=== PATIENT | male | born 1965 | race Caucasian/White ===

== ENCOUNTER → 2016-06-13 | Outpatient (CLI) | payer OTHER ==
[~2016-06-13] VITALS: Ht 180.3 cm; Wt 81.8 kg
[~2016-06-13] MED LIST: ALDACTONE100 MG PO; ALDACTONE50 MG PO; Aldactone PO; B COMPLETE1 EACH PO; CLOBETASOL PROP60 G1 TP; Chronulac,Cephulac,E PO; Cipro PO; ENULOSE10 GM/15 M PO; FEOSOL325 MG PO; FOLIC ACID1 MG PO; FUROSEMIDE20 MG PO; FUROSEMIDE40 MG PO; FUROSEMIDE80 MG PO; Feosol PO; Folvite PO; INDERAL LA60 MG PO; Inderal LA PO; LASIX40 MG PO; Lasix PO; Levothroid,Synthroid PO; MAG-OXIDE400 MG PO; Mag-Ox PO; POTASSIUM-9999 MG PO; PROTONIX40 MG PO; PriLOSEC PO; Protonix PO; SYNTHROID100 MCG PO; THERAGRAN1 TABLET PO; THERATRUM COMP1 EAC1 PO; THIAMINE HCL100 MG PO; TYLENOL REGULA325 MG PO; Theragran PO; Thiamine,Vitamin B1 PO; VITAMIN D5000 UNIT PO; XIFAXAN550 MG PO; ZINC50 M1 PO; ZOFRAN8 MG PO
== END | disposition home or self-care (01) ==
LOC: RAD 08:38 → EDSTATUS 09:00 → RAD 09:00
PROC: 0W993ZZ Drainage of Right Pleural Cavity, Percutaneous Approach (ICD-10-PCS; principal; 2016-06-13)
DX: J90 Pleural effusion, not elsewhere classified (principal)

== ENCOUNTER → 2016-06-25 | Outpatient (CLI) | payer OTHER | END | disposition home or self-care (01) | LOC: RAD 10:53 → EDSTATUS 11:00 → RAD 11:00 | PROC: 0B9N3ZZ Drainage of Right Pleura, Percutaneous Approach (ICD-10-PCS; principal; 2016-06-25) | DX: J90 Pleural effusion, not elsewhere classified (principal) ==

== ENCOUNTER → 2016-07-02 | Outpatient (CLI) | payer OTHER | END | disposition home or self-care (01) | LOC: RAD 08:50 → EDSTATUS 09:00 → RAD 09:00 | PROC: 0W993ZZ Drainage of Right Pleural Cavity, Percutaneous Approach (ICD-10-PCS; principal; 2016-07-02) | DX: J90 Pleural effusion, not elsewhere classified (principal) ==

== ENCOUNTER → 2016-07-15 | Outpatient (CLI) | payer OTHER | END | disposition home or self-care (01) | LOC: RAD 10:46 → EDSTATUS 11:00 → RAD 11:00 | PROC: 0W993ZZ Drainage of Right Pleural Cavity, Percutaneous Approach (ICD-10-PCS; principal; 2016-07-15) | DX: J90 Pleural effusion, not elsewhere classified (principal) ==

== ENCOUNTER → 2016-07-24 | Outpatient (CLI) | payer OTHER | END | disposition home or self-care (01) | LOC: RAD 08:40 → EDSTATUS 09:00 → RAD 09:00 | PROC: 0W993ZZ Drainage of Right Pleural Cavity, Percutaneous Approach (ICD-10-PCS; principal; 2016-07-24) | DX: J90 Pleural effusion, not elsewhere classified (principal) ==

== ENCOUNTER → 2016-07-31 | Outpatient (CLI) | payer OTHER | END | disposition home or self-care (01) | LOC: RAD 13:37 → EDSTATUS 14:00 → RAD 14:00 | PROC: 0W993ZZ Drainage of Right Pleural Cavity, Percutaneous Approach (ICD-10-PCS; principal; 2016-07-31) | DX: J90 Pleural effusion, not elsewhere classified (principal) ==

== ENCOUNTER → 2016-08-06 | Outpatient (CLI) | payer OTHER ==
[~2016-08-06] MED LIST changes: +CLEAR EYES ITCH15 ML BOTH EYES; +LIDOCARE1 EACH TP
== END | disposition home or self-care (01) ==
LOC: RAD 08:35 → EDSTATUS 09:00 → RAD 09:00
PROC: 0W993ZZ Drainage of Right Pleural Cavity, Percutaneous Approach (ICD-10-PCS; principal; 2016-08-06)
DX: J90 Pleural effusion, not elsewhere classified (principal)

== ENCOUNTER → 2016-08-14 | Outpatient (CLI) | payer OTHER ==
[~2016-08-14] MED LIST changes: -CLEAR EYES ITCH15 ML BOTH EYES; -LIDOCARE1 EACH TP
== END | disposition home or self-care (01) ==
LOC: RAD 13:35 → EDSTATUS 14:00 → RAD 14:00
PROC: 0W993ZZ Drainage of Right Pleural Cavity, Percutaneous Approach (ICD-10-PCS; principal; 2016-08-14)
DX: J90 Pleural effusion, not elsewhere classified (principal)

== ENCOUNTER → 2016-08-21 | Outpatient (CLI) | payer OTHER | END | disposition home or self-care (01) | LOC: RAD 09:00 → EDSTATUS 09:00 → RAD 13:00 | PROC: 0W993ZZ Drainage of Right Pleural Cavity, Percutaneous Approach (ICD-10-PCS; principal; 2016-08-21) | DX: J90 Pleural effusion, not elsewhere classified (principal) ==

== ENCOUNTER → 2016-08-28 | Outpatient (CLI) | payer OTHER ==
[~2016-08-28] MED LIST changes: +CLEAR EYES ITCH15 ML BOTH EYES; +LIDOCARE1 EACH TP
== END | disposition home or self-care (01) ==
LOC: RAD 08:41 → EDSTATUS 09:00
PROC: 0W993ZZ Drainage of Right Pleural Cavity, Percutaneous Approach (ICD-10-PCS; principal; 2016-08-28)
DX: J90 Pleural effusion, not elsewhere classified (principal)

== ENCOUNTER 2016-08-29 13:24 | Inpatient (IN) | payer OTHER ==
[~2016-08-29] VITALS: Ht 180.3 cm; Wt 80.5 kg
[2016-08-29] VITALS (11 sets, daily range): BP systolic 85–103; BP diastolic 40–60
[~2016-08-29 13:24] MED LIST changes: -CLEAR EYES ITCH15 ML BOTH EYES; -LIDOCARE1 EACH TP
[2016-08-29 14:01] LABS: CHLORIDE 101 mEq/L (99-109); SODIUM 133 mEq/L (136-147)
[2016-08-29 14:03] LABS: GLUCOSE 129 mg/dL (70-99)
[2016-08-29 14:04] LABS: ANION GAP 12 MEQ/L (2-14)
[2016-08-29 14:05] LABS: HEMATOCRIT 16.3 % (38.0-50.0); MCH 24.9 PG (29.0-34.0); MCHC 28.8 G/DL (30.0-36.0); MCV 86.2 FL (86-99); PLATELET COUNT 115 K/uL (156-360); RBC DIS.WIDTH-CV 16.7 % (11.8-14.6); RBC DIS.WIDTH-SD 53.1 % (39-53); RED BLOOD COUNT 1.89 M/uL (4.00-5.50); WHITE BLOOD COUNT 5.2 K/uL (4.1-10.2)
[2016-08-29 14:07] LABS: GFR ESTIMATE (CALCULATED) > 59 mL/min/
[2016-08-29 14:08] LABS: UREA NITROGEN (BUN) 17 mg/dL (9-23)
[2016-08-29] MEDS ORDERED: LIDOCARE1 EACH TP (15:01)
[2016-08-29] MEDS ORDERED: CLEAR EYES ITCH15 ML BOTH EYES (15:02)
[2016-08-29 20:15] LABS: INTER. NORMALIZED RATIO 1.5; PROTHROMBIN TIME 15.6 (9.2-11.2)
[2016-08-30] VITALS (16 sets, daily range): BP systolic 88–115; BP diastolic 50–70
[2016-08-30 10:07] LABS: ALKALINE PHOSPHATASE 101 IU/L (3-129); ANION GAP 6 MEQ/L (2-14); CHLORIDE 103 MEQ/L (99-109); GFR ESTIMATE (CALCULATED) > 59 mL/min/; GLUCOSE 132 mg/dL (70-99); SAMPLE HEMOLYSIS CHECK 0; SAMPLE ICTERIC CHECK 1; SAMPLE LIPEMIA CHECK 0; SODIUM 133 MEQ/L (136-147); TOTAL BILIRUBIN 4.3 MG/DL (0.0-1.0); UREA NITROGEN (BUN) 13 mg/dL (9-23)
[2016-08-30 10:09] LABS: HEMATOCRIT 23.1 % (38.0-50.0); MCH 27.1 PG (29.0-34.0); MCHC 31.2 G/DL (30.0-36.0); MCV 86.8 FL (86-99); RBC DIS.WIDTH-CV 15.5 % (11.8-14.6); RBC DIS.WIDTH-SD 49.2 % (39-53); RED BLOOD COUNT 2.66 M/uL (4.00-5.50)
[2016-08-30 12:18] LABS: PLATELET COUNT 78 K/uL (156-360)
[2016-08-30 17:53] LABS: HEMATOCRIT 25.9 % (38.0-50.0); MCV 84.6 FL (86-99)
== END 2016-08-30 20:04 | disposition home or self-care (01) | DRG 379 ==
LOC: EME 13:24 → EDOF 18:49 → 5EAST 18:49
PROVIDERS: Internal Medicine
PROC: 30233N1 Transfusion of Nonautologous Red Blood Cells into Peripheral Vein, Percutaneous Approach (ICD-10-PCS; principal; 2016-08-29)
DX: K92.2 Gastrointestinal hemorrhage, unspecified (principal); D64.9 Anemia, unspecified; K21.9 Gastro-esophageal reflux disease without esophagitis; I10 Essential (primary) hypertension; Z87.891 Personal history of nicotine dependence; K70.30 Alcoholic cirrhosis of liver without ascites; R19.7 Diarrhea, unspecified; E03.9 Hypothyroidism, unspecified; F10.10 Alcohol abuse, uncomplicated
CPT/HCPCS: 36415; 80048; 80053; 85014; 85018; 85025; 85027; 85610; 85730; 86850; 86900; 86901; 86920; 99281; 99284; C9113; J0696; J2354; J7050; P9016

== ENCOUNTER → 2016-09-04 | Outpatient (CLI) | payer OTHER ==
[~2016-09-04] MED LIST changes: +CLEAR EYES ITCH15 ML BOTH EYES; +LIDOCARE1 EACH TP
== END | disposition home or self-care (01) ==
LOC: RAD 08:55 → EDSTATUS 09:00 → RAD 09:00
PROC: 0W993ZZ Drainage of Right Pleural Cavity, Percutaneous Approach (ICD-10-PCS; principal; 2016-09-04)
DX: J90 Pleural effusion, not elsewhere classified (principal)

== ENCOUNTER → 2016-09-11 | Outpatient (CLI) | payer OTHER | END | disposition home or self-care (01) | LOC: RAD 08:50 → EDSTATUS 09:00 | PROC: 0W993ZZ Drainage of Right Pleural Cavity, Percutaneous Approach (ICD-10-PCS; principal; 2016-09-11) | DX: J90 Pleural effusion, not elsewhere classified (principal) ==

== ENCOUNTER → 2016-09-18 | Outpatient (CLI) | payer OTHER | END | disposition home or self-care (01) | LOC: RAD 08:31 → EDSTATUS 09:00 | PROC: 0W993ZZ Drainage of Right Pleural Cavity, Percutaneous Approach (ICD-10-PCS; principal; 2016-09-18) | DX: J90 Pleural effusion, not elsewhere classified (principal) ==

== ENCOUNTER → 2016-09-25 | Outpatient (CLI) | payer OTHER | END | disposition home or self-care (01) | LOC: RAD 08:51 → EDSTATUS 09:00 | PROC: 0W993ZZ Drainage of Right Pleural Cavity, Percutaneous Approach (ICD-10-PCS; principal; 2016-09-25) | DX: J90 Pleural effusion, not elsewhere classified (principal) ==

== ENCOUNTER → 2016-10-02 | Outpatient (CLI) | payer OTHER | END | disposition home or self-care (01) | LOC: RAD 08:59 → EDSTATUS 09:00 | PROC: 0W993ZZ Drainage of Right Pleural Cavity, Percutaneous Approach (ICD-10-PCS; principal; 2016-10-02) | DX: J90 Pleural effusion, not elsewhere classified (principal) ==

== ENCOUNTER → 2016-10-09 | Outpatient (CLI) | payer OTHER | END | disposition home or self-care (01) | LOC: RAD 09:00 → EDSTATUS 09:00 → RAD 09:04 | PROC: 0W993ZZ Drainage of Right Pleural Cavity, Percutaneous Approach (ICD-10-PCS; principal; 2016-10-09) | DX: J90 Pleural effusion, not elsewhere classified (principal) ==

== ENCOUNTER → 2016-10-16 | Outpatient (CLI) | payer OTHER | END | disposition home or self-care (01) | LOC: RAD 08:35 → EDSTATUS 09:00 | PROC: 0W993ZZ Drainage of Right Pleural Cavity, Percutaneous Approach (ICD-10-PCS; principal; 2016-10-16) | DX: J90 Pleural effusion, not elsewhere classified (principal) ==

== ENCOUNTER → 2016-10-23 | Outpatient (CLI) | payer OTHER | END | disposition home or self-care (01) | LOC: RAD 08:43 → EDSTATUS 09:00 → RAD 09:00 | PROC: 0W993ZZ Drainage of Right Pleural Cavity, Percutaneous Approach (ICD-10-PCS; principal; 2016-10-23) | DX: J90 Pleural effusion, not elsewhere classified (principal) ==

== ENCOUNTER → 2016-10-30 | Outpatient (CLI) | payer OTHER | END | disposition home or self-care (01) | LOC: RAD 08:34 → EDSTATUS 09:00 → RAD 09:00 | PROC: 0W993ZZ Drainage of Right Pleural Cavity, Percutaneous Approach (ICD-10-PCS; principal; 2016-10-30) | DX: J90 Pleural effusion, not elsewhere classified (principal) ==

== ENCOUNTER → 2016-11-06 | Outpatient (CLI) | payer OTHER | END | disposition home or self-care (01) | LOC: RAD 08:39 → EDSTATUS 09:00 | PROC: BB4BZZZ Ultrasonography of Pleura (ICD-10-PCS; principal; 2016-11-06) | DX: J90 Pleural effusion, not elsewhere classified (principal); Z53.09 Procedure and treatment not carried out because of other contraindication | CPT/HCPCS: 76604 ==

== ENCOUNTER → 2016-11-20 | Outpatient (CLI) | payer OTHER | END | disposition home or self-care (01) | LOC: RAD 08:50 → EDSTATUS 09:00 | PROC: BB4BZZZ Ultrasonography of Pleura (ICD-10-PCS; principal; 2016-11-20) | DX: J90 Pleural effusion, not elsewhere classified (principal); Z53.09 Procedure and treatment not carried out because of other contraindication | CPT/HCPCS: 76604 ==

== ENCOUNTER → 2016-11-27 | Outpatient (CLI) | payer OTHER | END | disposition home or self-care (01) | LOC: RAD 08:33 → EDSTATUS 09:00 → RAD 09:00 | PROC: BB4BZZZ Ultrasonography of Pleura (ICD-10-PCS; principal; 2016-11-27) | DX: J90 Pleural effusion, not elsewhere classified (principal); Z53.09 Procedure and treatment not carried out because of other contraindication | CPT/HCPCS: 76604 ==

== ENCOUNTER → 2016-12-04 | Outpatient (CLI) | payer OTHER | END | disposition home or self-care (01) | LOC: RAD 08:39 → EDSTATUS 09:00 | PROC: BB4BZZZ Ultrasonography of Pleura (ICD-10-PCS; principal; 2016-12-04) | DX: J90 Pleural effusion, not elsewhere classified (principal); Z53.09 Procedure and treatment not carried out because of other contraindication | CPT/HCPCS: 76604 ==

== ENCOUNTER → 2016-12-18 | Outpatient (CLI) | payer OTHER | END | disposition home or self-care (01) | LOC: RAD 08:44 → EDSTATUS 09:00 → RAD 09:00 | PROC: 0W993ZZ Drainage of Right Pleural Cavity, Percutaneous Approach (ICD-10-PCS; principal; 2016-12-18) | DX: J90 Pleural effusion, not elsewhere classified (principal) | CPT/HCPCS: 76942 ==

== ENCOUNTER → 2016-12-25 | Outpatient (CLI) | payer OTHER | END | disposition home or self-care (01) | LOC: RAD 08:33 → EDSTATUS 09:00 | PROC: 0W993ZZ Drainage of Right Pleural Cavity, Percutaneous Approach (ICD-10-PCS; principal; 2016-12-25) | DX: J90 Pleural effusion, not elsewhere classified (principal) | CPT/HCPCS: 76942 ==

== ENCOUNTER → 2017-01-01 | Outpatient (CLI) | payer OTHER | END | disposition home or self-care (01) | LOC: RAD 08:47 → EDSTATUS 09:00 | PROC: BB4BZZZ Ultrasonography of Pleura (ICD-10-PCS; principal; 2017-01-01) | DX: Z53.09 Procedure and treatment not carried out because of other contraindication (principal) | CPT/HCPCS: 76604 ==

== ENCOUNTER → 2017-01-13 | Outpatient (CLI) | payer OTHER | END | disposition home or self-care (01) | LOC: RAD 08:57 → EDSTATUS 09:00 → RAD 01-15 09:00 | PROC: BB4BZZZ Ultrasonography of Pleura (ICD-10-PCS; principal; 2017-01-13) | DX: Z53.09 Procedure and treatment not carried out because of other contraindication (principal) | CPT/HCPCS: 76604 ==

== ENCOUNTER → 2017-01-22 | Outpatient (CLI) | payer OTHER | END | disposition home or self-care (01) | LOC: EDSTATUS 09:00 → RAD 09:00 | PROC: BB4BZZZ Ultrasonography of Pleura (ICD-10-PCS; principal; 2017-01-22) | DX: Z53.09 Procedure and treatment not carried out because of other contraindication (principal) | CPT/HCPCS: 76604 ==

== ENCOUNTER → 2017-02-05 | Outpatient (CLI) | payer OTHER | END | disposition home or self-care (01) | LOC: RAD 08:31 → EDSTATUS 09:00 → RAD 09:00 | PROC: BB4BZZZ Ultrasonography of Pleura (ICD-10-PCS; principal; 2017-02-05) | DX: Z53.09 Procedure and treatment not carried out because of other contraindication (principal) | CPT/HCPCS: 76604 ==

== ENCOUNTER → 2017-02-19 | Outpatient (CLI) | payer OTHER | END | disposition home or self-care (01) | LOC: RAD 09:00 → EDSTATUS 09:00 → RAD 09:23 | PROC: BB4BZZZ Ultrasonography of Pleura (ICD-10-PCS; principal; 2017-02-19) | DX: Z53.09 Procedure and treatment not carried out because of other contraindication (principal) | CPT/HCPCS: 76604 ==

== ENCOUNTER → 2017-02-25 | Outpatient (CLI) | payer OTHER | END | disposition home or self-care (01) | LOC: RAD 08:51 → EDSTATUS 09:00 | PROC: BB4BZZZ Ultrasonography of Pleura (ICD-10-PCS; principal; 2017-02-25) | DX: Z53.09 Procedure and treatment not carried out because of other contraindication (principal) | CPT/HCPCS: 76604 ==

== ENCOUNTER → 2017-03-05 | Outpatient (CLI) | payer OTHER | END | disposition home or self-care (01) | LOC: RAD 08:46 → EDSTATUS 09:00 → RAD 09:00 | PROC: BB4BZZZ Ultrasonography of Pleura (ICD-10-PCS; principal; 2017-03-05) | DX: Z53.09 Procedure and treatment not carried out because of other contraindication (principal) | CPT/HCPCS: 76604 ==

== ENCOUNTER → 2017-04-02 | Outpatient (CLI) | payer OTHER ==
[~2017-04-02] MED LIST changes: +ASPIR 8181 M1 PO; +FLAGYL500 MG PO; +METOPROLOL SUCC25 MG PO; +PRAVASTATIN SOD80 MG PO; +PREVALITE PACKET4 GM PO
== END | disposition home or self-care (01) ==
LOC: EDSTATUS 01-08 09:00 → RAD 01-08 09:00
PROC: BB4BZZZ Ultrasonography of Pleura (ICD-10-PCS; principal; 2017-04-02)
DX: J90 Pleural effusion, not elsewhere classified (principal); Z53.09 Procedure and treatment not carried out because of other contraindication
CPT/HCPCS: 76604

== ENCOUNTER → 2017-04-08 | Outpatient (CLI) | payer OTHER ==
[~2017-04-08] VITALS: Ht 177.8 cm; Wt 81.0 kg
[~2017-04-08] MED LIST changes: +B-1100 MG PO; +FLEXERIL10 MG PO; +K-DUR20 MEQ PO; +LEVOTHYROXINE100 MCG PO; +MULTIPLE VITAM1 EAC1 PO; +PREVACID30 MG PO; +PROPRANOLOL HCL40 MG PO; +VITAMIN B122500 MCG PO; +VITAMIN D35000 UNIT PO; +XIFAXAN200 MG PO
== END | disposition home or self-care (01) ==
LOC: EDSTATUS 03-18 09:00 → RAD 03-18 09:00
PROC: 0W993ZZ Drainage of Right Pleural Cavity, Percutaneous Approach (ICD-10-PCS; principal; 2017-04-08)
DX: J90 Pleural effusion, not elsewhere classified (principal)
CPT/HCPCS: 76942

== ENCOUNTER → 2017-04-16 | Outpatient (CLI) | payer OTHER | END | disposition home or self-care (01) | LOC: RAD 08:54 | PROC: 0W993ZZ Drainage of Right Pleural Cavity, Percutaneous Approach (ICD-10-PCS; principal; 2017-04-16) | DX: J90 Pleural effusion, not elsewhere classified (principal) | CPT/HCPCS: 76942 ==

== ENCOUNTER → 2017-04-21 | Outpatient (CLI) | payer OTHER ==
[~2017-04-21] MED LIST changes: +AMPICILLIN TRI500 MG PO
== END | disposition home or self-care (01) ==
LOC: RAD 10:28 → EDSTATUS 11:00 → RAD 11:00
PROC: 0W993ZZ Drainage of Right Pleural Cavity, Percutaneous Approach (ICD-10-PCS; principal; 2017-04-21)
DX: J90 Pleural effusion, not elsewhere classified (principal)
CPT/HCPCS: 76942

== ENCOUNTER → 2017-04-27 | Outpatient (CLI) | payer OTHER ==
[2017-04-27 12:45] LABS: TYPE OF FLUID PLEURAL
[2017-04-27 13:03] LABS: BODY FLUID RBC'S 159000 /MM^3 (0-100); BODY FLUID WBC'S 1869 /MM^3 (0-500)
[2017-04-27 14:17] LABS: BODY FLUID EOSINOPHILS 0 % (0-25); MONONUCLEAR WBC'S 26 %; POLYNUCLEAR WBC'S 74 % (0-25)
== END | disposition home or self-care (01) ==
LOC: RAD 11:00
PROVIDERS: Internal Medicine
PROC: 0W993ZZ Drainage of Right Pleural Cavity, Percutaneous Approach (ICD-10-PCS; principal; 2017-04-27)
DX: J90 Pleural effusion, not elsewhere classified (principal)
CPT/HCPCS: 76942; 87070; 87075; 87077; 87186; 87205; 89051

== ENCOUNTER → 2017-05-04 | Outpatient (CLI) | payer OTHER | END | disposition home or self-care (01) | LOC: RAD 11:00 → EDSTATUS 11:00 → RAD 11:05 | PROC: 0W993ZZ Drainage of Right Pleural Cavity, Percutaneous Approach (ICD-10-PCS; principal; 2017-05-04) | DX: J90 Pleural effusion, not elsewhere classified (principal) | CPT/HCPCS: 76942 ==

== ENCOUNTER → 2017-05-14 | Outpatient (CLI) | payer OTHER | END | disposition home or self-care (01) | LOC: RAD 08:30 | PROC: 0W993ZZ Drainage of Right Pleural Cavity, Percutaneous Approach (ICD-10-PCS; principal; 2017-05-14) | DX: J90 Pleural effusion, not elsewhere classified (principal) | CPT/HCPCS: 76942 ==

== ENCOUNTER → 2017-05-20 | Outpatient (CLI) | payer OTHER | END | disposition home or self-care (01) | LOC: RAD 10:58 → EDSTATUS 11:00 → RAD 11:00 | PROC: 0W993ZZ Drainage of Right Pleural Cavity, Percutaneous Approach (ICD-10-PCS; principal; 2017-05-20) | DX: J90 Pleural effusion, not elsewhere classified (principal) | CPT/HCPCS: 76942 ==

== ENCOUNTER → 2017-05-28 | Outpatient (CLI) | payer OTHER ==
[~2017-05-28] MED LIST changes: +MICRO-K10 ME2 PO
== END | disposition home or self-care (01) ==
LOC: RAD 08:56 → EDSTATUS 09:00 → RAD 09:00
PROC: 0W993ZZ Drainage of Right Pleural Cavity, Percutaneous Approach (ICD-10-PCS; principal; 2017-05-28)
DX: J90 Pleural effusion, not elsewhere classified (principal)
CPT/HCPCS: 76942

== ENCOUNTER → 2017-06-04 | Outpatient (CLI) | payer OTHER | END | disposition home or self-care (01) | LOC: RAD 09:06 | PROC: 0W993ZZ Drainage of Right Pleural Cavity, Percutaneous Approach (ICD-10-PCS; principal; 2017-06-04) | DX: J90 Pleural effusion, not elsewhere classified (principal) | CPT/HCPCS: 76942 ==

== ENCOUNTER → 2017-06-11 | Outpatient (CLI) | payer OTHER | END | disposition home or self-care (01) | LOC: RAD 08:46 → EDSTATUS 09:00 | PROC: 0W993ZZ Drainage of Right Pleural Cavity, Percutaneous Approach (ICD-10-PCS; principal; 2017-06-11) | DX: J90 Pleural effusion, not elsewhere classified (principal) | CPT/HCPCS: 76942 ==

== ENCOUNTER → 2017-06-18 | Outpatient (CLI) | payer OTHER | END | disposition home or self-care (01) | LOC: RAD 10:15 → EDSTATUS 11:00 | PROC: 0W9B3ZZ Drainage of Left Pleural Cavity, Percutaneous Approach (ICD-10-PCS; principal; 2017-06-18) | DX: J90 Pleural effusion, not elsewhere classified (principal) | CPT/HCPCS: 76942 ==

== ENCOUNTER → 2017-07-02 | Outpatient (CLI) | payer OTHER | END | disposition home or self-care (01) | LOC: RAD 10:47 → EDSTATUS 11:00 | PROC: 0W993ZZ Drainage of Right Pleural Cavity, Percutaneous Approach (ICD-10-PCS; principal; 2017-07-02) | DX: J90 Pleural effusion, not elsewhere classified (principal) | CPT/HCPCS: 76942 ==

== ENCOUNTER → 2017-07-09 | Outpatient (CLI) | payer OTHER | END | disposition home or self-care (01) | LOC: RAD 10:46 → EDSTATUS 11:00 → RAD 11:00 | PROC: 0W993ZZ Drainage of Right Pleural Cavity, Percutaneous Approach (ICD-10-PCS; principal; 2017-07-09) | DX: J90 Pleural effusion, not elsewhere classified (principal) | CPT/HCPCS: 76942 ==

== ENCOUNTER → 2017-07-16 | Outpatient (CLI) | payer OTHER | END | disposition home or self-care (01) | LOC: RAD 10:47 → EDSTATUS 11:00 → RAD 11:00 | PROC: BB4BZZZ Ultrasonography of Pleura (ICD-10-PCS; principal; 2017-07-16) | DX: J90 Pleural effusion, not elsewhere classified (principal); Z53.09 Procedure and treatment not carried out because of other contraindication | CPT/HCPCS: 76604 ==

== ENCOUNTER → 2017-07-30 | Outpatient (CLI) | payer OTHER | END | disposition home or self-care (01) | LOC: RAD 10:52 → EDSTATUS 11:00 | PROC: BB4BZZZ Ultrasonography of Pleura (ICD-10-PCS; principal; 2017-07-30) | DX: J90 Pleural effusion, not elsewhere classified (principal); Z53.09 Procedure and treatment not carried out because of other contraindication | CPT/HCPCS: 76604 ==

== ENCOUNTER → 2017-08-06 | Outpatient (CLI) | payer OTHER | END | disposition home or self-care (01) | LOC: RAD 06-25 11:00 → EDSTATUS 06-25 11:00 → RAD 11:00 | PROC: 0WJG3ZZ Inspection of Peritoneal Cavity, Percutaneous Approach (ICD-10-PCS; principal; 2017-08-06) | DX: J90 Pleural effusion, not elsewhere classified (principal); Z53.09 Procedure and treatment not carried out because of other contraindication | CPT/HCPCS: 76604 ==

== ENCOUNTER → 2017-08-13 | Outpatient (CLI) | payer OTHER | END | disposition home or self-care (01) | LOC: EDSTATUS 11:00 → RAD 11:00 | PROC: BB4BZZZ Ultrasonography of Pleura (ICD-10-PCS; principal; 2017-08-13) | DX: R18.8 Other ascites (principal); Z53.09 Procedure and treatment not carried out because of other contraindication | CPT/HCPCS: 76604 ==

== ENCOUNTER 2017-08-27 10:41 | Emergency (ER) | payer OTHER ==
[2017-08-27] VITALS (13 sets, daily range): BP systolic 92–115; BP diastolic 47–63
[~2017-08-27] VITALS: Ht 180.3 cm; Wt 85.0 kg
[2017-08-27 11:24] LABS: INTER. NORMALIZED RATIO 2.8
[2017-08-27 11:26] LABS: HEMATOCRIT 17.3 % (38.0-50.0); MCH 38.7 PG (29.0-34.0); MCHC 33.5 G/DL (30.0-36.0); MCV 115.3 FL (86-99); NRBC (%) 0.2 /100 WBC (0-0); PLATELET COUNT 99 K/uL (156-360); PTT 46.1 SEC (25-37); RBC DIS.WIDTH-CV 19.4 % (11.8-14.6); RBC DIS.WIDTH-SD 76.9 % (39-53); WHITE BLOOD COUNT 8.7 K/uL (4.1-10.2)
[2017-08-27 11:28] LABS: ALBUMIN 2.3 g/dL (3.2-4.8); CHLORIDE 90 mEq/L (99-109); POTASSIUM 3.8 mEq/L (3.7-5.4); SODIUM 127 mEq/L (136-147)
[2017-08-27 11:29] LABS: HEMOGLOBIN 5.8 G/DL (12.5-16.6)
[2017-08-27 11:30] LABS: GLUCOSE 144 mg/dL (70-99)
[2017-08-27 11:31] LABS: TOTAL PROTEIN 5.6 g/dL (6.4-8.3)
[2017-08-27 11:32] LABS: TOTAL BILIRUBIN 19.1 mg/dL (0.0-1.0)
[2017-08-27 11:34] LABS: ALKALINE PHOSPHATASE 92 IU/L (3-129); CREATININE 1.3 mg/dL (0.6-1.3); GFR ESTIMATE (CALCULATED) > 59 mL/min/ (58.99-99999)
[2017-08-27 11:35] LABS: UREA NITROGEN (BUN) 39 mg/dL (9-23)
[2017-08-27 11:36] LABS: AST (GOT) 53 IU/L (2-34); DIRECT BILIRUBIN 10.4 mg/dL (0.0-0.3)
[2017-08-27 11:37] LABS: ALT (GPT) 20 IU/L (3-49)
[2017-08-27 11:52] LABS: TYPE OF FLUID PERITONEAL
[2017-08-27 12:07] LABS: ABS NEUTROPHIL COUNT 7.9; ANISOCYTOSIS 2+; BAND NEUTROPHILS 3.5 % (0-8.0); EOSINOPHIL ABS CT 0; LYMPHOCYTES 1.7 % (15.0-45.0); MACROCYTES 2+; NUCLEATED RBC'S 0.9; PLAT.SUFFICIENCY ADEQUATE; POIKILOCYTOSIS 1+; SEG.NEUTROPHILS 87.8 % (46.0-76.0)
[2017-08-27 13:08] LABS: APPEARANCE CLEAR ((CLEAR)); BILIRUBIN MODERATE; BLOOD SMALL; COLOR AMBER ((YELLOW)); GLUCOSE (STRIP) NEGATIVE; KETONES NEGATIVE; LEUKOCYTES NEGATIVE; NITRITE NEGATIVE; PROTEIN (STRIP) 30; SPECIFIC GRAVITY 1.017 (1.000-1.030)
[2017-08-27 13:09] LABS: BODY FLUID EOSINOPHILS 0 % (0-25); BODY FLUID RBC'S 2000 /MM^3 (0-100); BODY FLUID WBC'S 22430 /MM^3 (0-500); MONONUCLEAR WBC'S 13 %; POLYNUCLEAR WBC'S 87 % (0-25)
[2017-08-27 13:21] LABS: APPEARANCE YELLOW/CLOUDY
[2017-08-27 13:25] LABS: EPITHELIAL CELLS 2+ /HPF; MUCUS NONE SEEN /LPF; RED BLOOD CELLS RARE /HPF (0-5); WHITE BLOOD CELLS NONE SEEN /HPF (0-5)
[2017-08-27 13:26] LABS: BACTERIA 1+ /HPF; UCUL ADDED? NO
[2017-08-27 13:40] LABS: ICTOTEST POSITIVE
== END 2017-08-27 20:37 | disposition short-term general hospital (02) ==
LOC: EME 10:41
PROVIDERS: Emergency Medicine
PROC: 30233N1 Transfusion of Nonautologous Red Blood Cells into Peripheral Vein, Percutaneous Approach (ICD-10-PCS; principal; 2017-08-27)
PROC: 30233K1 Transfusion of Nonautologous Frozen Plasma into Peripheral Vein, Percutaneous Approach (ICD-10-PCS; principal; 2017-08-27)
PROC: 0W9G3ZZ Drainage of Peritoneal Cavity, Percutaneous Approach (ICD-10-PCS; principal; 2017-08-27)
DX: K65.2 Spontaneous bacterial peritonitis (principal); B96.89 Other specified bacterial agents as the cause of diseases classified elsewhere; D64.9 Anemia, unspecified; R65.20 Severe sepsis without septic shock; E80.6 Other disorders of bilirubin metabolism; K74.60 Unspecified cirrhosis of liver; Z76.82 Awaiting organ transplant status; J90 Pleural effusion, not elsewhere classified; F32.9 Major depressive disorder, single episode, unspecified; K21.9 Gastro-esophageal reflux disease without esophagitis; Z87.891 Personal history of nicotine dependence
CPT/HCPCS: 49083; 71046; 76604; 80048; 80076; 81003; 83605; 85025; 85610; 85730; 86850; 86900; 86901; 86920; 87040; 87070; 87075; 87077; 87186; 87205; 87502; 89051; 99281; 99285; J0696; J7030; P9016; P9017

== ENCOUNTER → 2017-09-17 | Outpatient (CLI) | payer OTHER ==
[~2017-09-17] MED LIST changes: +BACTRIM,SEPT1 TABLET PO
== END | disposition home or self-care (01) ==
LOC: RAD 10:46 → EDSTATUS 11:00
PROC: 0W993ZZ Drainage of Right Pleural Cavity, Percutaneous Approach (ICD-10-PCS; principal; 2017-09-17)
DX: J90 Pleural effusion, not elsewhere classified (principal)
CPT/HCPCS: 76942

== ENCOUNTER → 2017-09-24 | Outpatient (CLI) | payer OTHER | END | disposition home or self-care (01) | LOC: RAD 10:53 → EDSTATUS 11:00 | PROC: 0W993ZZ Drainage of Right Pleural Cavity, Percutaneous Approach (ICD-10-PCS; principal; 2017-09-24) | DX: J90 Pleural effusion, not elsewhere classified (principal) | CPT/HCPCS: 76942 ==

== ENCOUNTER → 2017-10-01 | Outpatient (CLI) | payer OTHER | END | disposition home or self-care (01) | LOC: RAD 11:00 → EDSTATUS 11:00 → RAD 11:04 | PROC: 0W993ZZ Drainage of Right Pleural Cavity, Percutaneous Approach (ICD-10-PCS; principal; 2017-10-01) | DX: J90 Pleural effusion, not elsewhere classified (principal) | CPT/HCPCS: 76942 ==

== ENCOUNTER → 2017-10-08 | Outpatient (CLI) | payer OTHER | END | disposition home or self-care (01) | LOC: RAD 07-23 11:00 → EDSTATUS 07-23 11:00 → RAD 09-10 11:00 | PROC: 0W993ZZ Drainage of Right Pleural Cavity, Percutaneous Approach (ICD-10-PCS; principal; 2017-10-08) | DX: J90 Pleural effusion, not elsewhere classified (principal) | CPT/HCPCS: 76942 ==

== ENCOUNTER → 2017-10-15 | Outpatient (CLI) | payer OTHER | END | disposition home or self-care (01) | LOC: RAD 08-20 11:00 → EDSTATUS 08-20 11:00 → RAD 11:00 | PROC: 0W993ZZ Drainage of Right Pleural Cavity, Percutaneous Approach (ICD-10-PCS; principal; 2017-10-15) | DX: J90 Pleural effusion, not elsewhere classified (principal) | CPT/HCPCS: 76942 ==

== ENCOUNTER → 2017-10-22 | Outpatient (CLI) | payer OTHER | END | disposition home or self-care (01) | LOC: EDSTATUS 08-27 11:00 → RAD 08-27 11:00 | PROC: 0W993ZZ Drainage of Right Pleural Cavity, Percutaneous Approach (ICD-10-PCS; principal; 2017-10-22) | DX: J90 Pleural effusion, not elsewhere classified (principal) | CPT/HCPCS: 76942 ==

== ENCOUNTER → 2017-10-29 | Outpatient (CLI) | payer OTHER ==
[~2017-10-29] MED LIST changes: +BUMEX2 MG PO; +POTASSIUM CHLO10 ME4 PO
== END | disposition home or self-care (01) ==
LOC: RAD 10:54 → EDSTATUS 11:00 → RAD 11:00
DX: J90 Pleural effusion, not elsewhere classified (principal)
CPT/HCPCS: 76604

== ENCOUNTER → 2017-11-05 | Outpatient (CLI) | payer OTHER | END | disposition home or self-care (01) | LOC: RAD 10:54 → EDSTATUS 11:00 | PROC: 0W993ZZ Drainage of Right Pleural Cavity, Percutaneous Approach (ICD-10-PCS; principal; 2017-11-05) | DX: J90 Pleural effusion, not elsewhere classified (principal) | CPT/HCPCS: 76942 ==

== ENCOUNTER → 2017-11-12 | Outpatient (CLI) | payer OTHER | END | disposition home or self-care (01) | LOC: RAD 10:59 → EDSTATUS 11:00 | PROC: BB4BZZZ Ultrasonography of Pleura (ICD-10-PCS; principal; 2017-11-12) | DX: J90 Pleural effusion, not elsewhere classified (principal); Z53.09 Procedure and treatment not carried out because of other contraindication | CPT/HCPCS: 76604 ==

== ENCOUNTER → 2017-11-19 | Outpatient (CLI) | payer OTHER | END | disposition home or self-care (01) | LOC: RAD 10:47 → EDSTATUS 11:00 | DX: R18.8 Other ascites (principal); J90 Pleural effusion, not elsewhere classified; Z53.09 Procedure and treatment not carried out because of other contraindication | CPT/HCPCS: 49083; 76604 ==

== ENCOUNTER → 2017-11-26 | Outpatient (CLI) | payer OTHER | END | disposition home or self-care (01) | LOC: EDSTATUS 11:00 → RAD 11:00 | DX: R18.8 Other ascites (principal); J90 Pleural effusion, not elsewhere classified; Z53.09 Procedure and treatment not carried out because of other contraindication | CPT/HCPCS: 49083; 76604 ==

== ENCOUNTER → 2017-12-02 | Outpatient (CLI) | payer OTHER | END | disposition home or self-care (01) | LOC: RAD 13:13 | PROC: 0W9G3ZZ Drainage of Peritoneal Cavity, Percutaneous Approach (ICD-10-PCS; principal; 2017-12-02) | DX: R18.8 Other ascites (principal) | CPT/HCPCS: 49083 ==

== ENCOUNTER → 2017-12-10 | Outpatient (CLI) | payer OTHER | END | disposition home or self-care (01) | LOC: RAD 09:56 | PROC: 0W9G3ZZ Drainage of Peritoneal Cavity, Percutaneous Approach (ICD-10-PCS; principal; 2017-12-10) | DX: R18.8 Other ascites (principal) | CPT/HCPCS: 49083 ==

== ENCOUNTER → 2017-12-16 | Outpatient (CLI) | payer OTHER ==
[~2017-12-16] MED LIST changes: +BUMETANIDE2 MG PO; +INDERAL10 MG PO; +METOLAZONE5 MG PO; +POTASSIUM CHLO20 ME1 PO
== END | disposition home or self-care (01) ==
LOC: RAD 13:13
PROC: 0W9G3ZZ Drainage of Peritoneal Cavity, Percutaneous Approach (ICD-10-PCS; principal; 2017-12-16)
DX: R18.8 Other ascites (principal)
CPT/HCPCS: 49083

== ENCOUNTER 2017-12-18 18:14 | Inpatient (IN) | payer OTHER ==
[~2017-12-18] VITALS: Ht 180.3 cm; Wt 78.8 kg
[~2017-12-18 18:14] MED LIST changes: -BUMETANIDE2 MG PO; -INDERAL10 MG PO; -METOLAZONE5 MG PO; -POTASSIUM CHLO20 ME1 PO
[2017-12-18 19:01] LABS: HEMATOCRIT 20.4 % (38.0-50.0); HEMOGLOBIN 7.1 G/DL (12.5-16.6); MCHC 34.8 G/DL (30.0-36.0); PLATELET COUNT 75 K/uL (156-360); RBC DIS.WIDTH-CV 16.9 % (11.8-14.6); RBC DIS.WIDTH-SD 63.9 % (39-53); RED BLOOD COUNT 1.92 M/uL (4.00-5.50)
[2017-12-18 19:07] LABS: MCV 106.3 FL (86-99)
[2017-12-18 19:22] LABS: CHLORIDE 97 mEq/L (99-109); POTASSIUM 3.3 mEq/L (3.7-5.4); SODIUM 134 mEq/L (136-147)
[2017-12-18 19:23] LABS: GLUCOSE 128 mg/dL (70-99)
[2017-12-18 19:27] LABS: CREATININE 0.7 mg/dL (0.6-1.3); GFR ESTIMATE (CALCULATED) > 59 mL/min/ (58.99-99999)
[2017-12-18 19:28] LABS: UREA NITROGEN (BUN) 14 mg/dL (9-23)
[2017-12-18 19:43] LABS: INTER. NORMALIZED RATIO 1.9
[2017-12-18 19:46] LABS: PTT 35.7 SEC (25-37)
[2017-12-18 19:50] LABS: ALBUMIN 2.3 g/dL (3.2-4.8)
[2017-12-18 19:53] LABS: TOTAL PROTEIN 5.2 g/dL (6.4-8.3)
[2017-12-18 19:55] LABS: TOTAL BILIRUBIN 13.3 mg/dL (0.0-1.0)
[2017-12-18 19:56] LABS: ALKALINE PHOSPHATASE 209 IU/L (3-129)
[2017-12-18 19:58] LABS: AST (GOT) 55 IU/L (2-34); DIRECT BILIRUBIN 5.6 mg/dL (0.0-0.3)
[2017-12-18 19:59] LABS: ALT (GPT) 22 IU/L (3-49); LIPASE 57 U/L (1.0-51.0)
[2017-12-18 20:00] LABS: TROP-I INTERPRETATION NEGATIVE; TROPONIN-I 0.01 ng/mL (0.0-0.30)
[2017-12-18] MEDS ORDERED: METOLAZONE5 MG PO (23:15)
[2017-12-18] MEDS ORDERED: POTASSIUM CHLO20 ME1 PO (23:17)
[2017-12-18] MEDS ORDERED: BUMETANIDE2 MG PO (23:18)
[2017-12-18] MEDS ORDERED: INDERAL10 MG PO (23:19)
[2017-12-19] VITALS (8 sets, daily range): BP systolic 111–132; BP diastolic 57–75
[2017-12-19 03:24] LABS: HEMATOCRIT 18.5 % (38.0-50.0); HEMOGLOBIN 6.4 G/DL (12.5-16.6); MCHC 34.6 G/DL (30.0-36.0); MCV 106.9 FL (86-99); PLATELET COUNT 66 K/uL (156-360); RBC DIS.WIDTH-CV 16.9 % (11.8-14.6); RBC DIS.WIDTH-SD 64.2 % (39-53); RED BLOOD COUNT 1.73 M/uL (4.00-5.50); WHITE BLOOD COUNT 3.5 K/uL (4.1-10.2)
== END 2017-12-19 07:16 | disposition short-term general hospital (02) | DRG 433 ==
LOC: EME 18:14 → 4EAST 12-19 → EDOF 12-19 → ENRESERV 12-19 00:04 → 4EAST 12-19 01:35
PROVIDERS: Emergency Medicine; Student in an Organized Health Care Education/Training Program
PROC: 30233N1 Transfusion of Nonautologous Red Blood Cells into Peripheral Vein, Percutaneous Approach (ICD-10-PCS; principal; 2017-12-19)
DX: K70.40 Alcoholic hepatic failure without coma (principal); K70.31 Alcoholic cirrhosis of liver with ascites; Z76.82 Awaiting organ transplant status; K92.2 Gastrointestinal hemorrhage, unspecified; E87.1 Hypo-osmolality and hyponatremia; E87.6 Hypokalemia; I10 Essential (primary) hypertension; L40.9 Psoriasis, unspecified; D51.0 Vitamin B12 deficiency anemia due to intrinsic factor deficiency; F10.21 Alcohol dependence, in remission; Z87.891 Personal history of nicotine dependence; Z80.0 Family history of malignant neoplasm of digestive organs
CPT/HCPCS: 36415; 49083; 71045; 80048; 80053; 80076; 81003; 82140; 82272; 83605; 83690; 84484; 85025; 85027; 85610; 85730; 86850; 86900; 86901; 86920; 93005; 99281; 99285; C9113; J0696; J1940; J3411; J7030; J7050; P9016

== ENCOUNTER 2017-12-30 16:32 | Inpatient (IN) | payer OTHER ==
[~2017-12-30] VITALS: Ht 180.3 cm; Wt 90.6 kg
[2017-12-30] VITALS (8 sets, daily range): BP systolic 80–102; BP diastolic 40–59
[~2017-12-30 16:32] MED LIST changes: -CONSTULOSE10 GM/15 M PO; -PANTOPRAZOLE SO40 MG PO
[2017-12-30 17:45] LABS: CARBON DIOXIDE (BICARBONATE) 21.9 MEQ/L (20-31)
[2017-12-30 17:50] LABS: ALBUMIN 2.9 g/dL (3.2-4.8)
[2017-12-30 17:51] LABS: CHLORIDE 103 mEq/L (99-109); POTASSIUM 4.9 mEq/L (3.7-5.4); SODIUM 133 mEq/L (136-147)
[2017-12-30 17:52] LABS: BASOPHIL (%) 0.1 % (0-1); EOSINOPHIL (%) 0.6 % (0-5); EOSINOPHIL COUNT 0.1 K/uL (0-0.3); HEMATOCRIT 13.4 % (38.0-50.0); IMMATURE GRANULOCYTE (%) 1.2 % (0.0-0.7); LYMPHOCYTE (%) 3.5 % (15-42); LYMPHOCYTE COUNT 0.7 K/uL (1.0-2.8); MCH 36.1 PG (29.0-34.0); MCHC 35.8 G/DL (30.0-36.0); MONOCYTE (%) 8.1 % (3-12); MONOCYTE COUNT 1.6 K/uL (0-0.8); NEUTROPHIL (%) 86.5 % (45-76); NEUTROPHIL COUNT 17.2 K/uL (1.8-6.4); RBC DIS.WIDTH-CV 21.6 % (11.8-14.6); RBC DIS.WIDTH-SD 76.4 % (39-53); WHITE BLOOD COUNT 19.8 K/uL (4.1-10.2)
[2017-12-30 17:53] LABS: GLUCOSE 84 mg/dL (70-99); HEMOGLOBIN 4.8 G/DL (12.5-16.6); MCV 100.8 FL (86-99); PLATELET COUNT 128 K/uL (156-360); RED BLOOD COUNT 1.33 M/uL (4.00-5.50); TOTAL PROTEIN 5.9 g/dL (6.4-8.3)
[2017-12-30 17:54] LABS: APPEARANCE CLEAR ((CLEAR)); BILIRUBIN NEGATIVE; BLOOD NEGATIVE; COLOR YELLOW ((YELLOW)); GLUCOSE (STRIP) NEGATIVE; KETONES NEGATIVE; LEUKOCYTES NEGATIVE; NITRITE NEGATIVE; PROTEIN (STRIP) NEGATIVE; SPECIFIC GRAVITY 1.006 (1.000-1.030); UCUL ADDED? NO; UROBILINOGEN 0.2 MG/DL (0.2-1.0)
[2017-12-30 17:55] LABS: TOTAL BILIRUBIN 11.2 mg/dL (0.0-1.0)
[2017-12-30 17:56] LABS: ALKALINE PHOSPHATASE 200 IU/L (3-129)
[2017-12-30 17:57] LABS: CREATININE 1.2 mg/dL (0.6-1.3); GFR ESTIMATE (CALCULATED) > 59 mL/min/ (58.99-99999); INTER. NORMALIZED RATIO 1.7
[2017-12-30 17:58] LABS: AST (GOT) 76 IU/L (2-34); UREA NITROGEN (BUN) 29 mg/dL (9-23)
[2017-12-30 17:59] LABS: ALT (GPT) 34 IU/L (3-49)
[2017-12-30 18:00] LABS: LIPASE 60 U/L (1.0-51.0); PTT 35.5 SEC (25-37)
[2017-12-30] MEDS ORDERED: XIFAXAN550 MG PO (19:50)
[2017-12-30] MEDS ORDERED: LEVOTHYROXINE100 MCG PO (19:51)
[2017-12-30] MEDS ORDERED: PANTOPRAZOLE SO40 MG PO (19:51)
[2017-12-30 19:53] LABS: BASOPHIL (%) 0.2 % (0-1); EOSINOPHIL (%) 0.9 % (0-5); EOSINOPHIL COUNT 0.1 K/uL (0-0.3); HEMATOCRIT 20.3 % (38.0-50.0); IMMATURE GRANULOCYTE (%) 1.2 % (0.0-0.7); LYMPHOCYTE COUNT 0.6 K/uL (1.0-2.8); MCH 35.8 PG (29.0-34.0); MCV 99.5 FL (86-99); MONOCYTE (%) 10.7 % (3-12); MONOCYTE COUNT 1.4 K/uL (0-0.8); NEUTROPHIL COUNT 10.6 K/uL (1.8-6.4); RBC DIS.WIDTH-CV 21.5 % (11.8-14.6); RBC DIS.WIDTH-SD 77.1 % (39-53); WHITE BLOOD COUNT 12.9 K/uL (4.1-10.2)
[2017-12-30] MEDS ORDERED: CONSTULOSE10 GM/15 M PO (19:53)
[2017-12-30 19:54] LABS: HEMOGLOBIN 7.3 G/DL (12.5-16.6); RED BLOOD COUNT 2.04 M/uL (4.00-5.50)
[2017-12-30 20:35] LABS: HEMATOLOGY COMMENT 1 SN; PLAT.SUFFICIENCY DECREASED
[2017-12-30 20:36] LABS: PLATELET COUNT 72 K/uL (156-360)
[2017-12-31] VITALS (43 sets, daily range): BP systolic 70–110; BP diastolic 36–67
[2017-12-31 02:38] LABS: HEMATOCRIT 23.9 % (38.0-50.0); HEMOGLOBIN 8.6 G/DL (12.5-16.6); MCV 96.4 FL (86-99)
[2017-12-31 05:29] LABS: HEMOGLOBIN 8.2 G/DL (12.5-16.6); MCH 33.5 PG (29.0-34.0); MCHC 34.2 G/DL (30.0-36.0); PLATELET COUNT 75 K/uL (156-360); RBC DIS.WIDTH-CV 22.3 % (11.8-14.6); RBC DIS.WIDTH-SD 76.2 % (39-53)
[2017-12-31 05:36] LABS: PTT 38.2 SEC (25-37)
[2017-12-31 05:41] LABS: RED BLOOD COUNT 2.45 M/uL (4.00-5.50)
[2017-12-31 06:51] LABS: ALBUMIN 2.6 G/DL (3.2-4.8); ALKALINE PHOSPHATASE 87 IU/L (3-129); ALT (GPT) 22 IU/L (3-49); AST (GOT) 41 IU/L (2-34); CHLORIDE 107 MEQ/L (99-109); CREATININE 1.5 MG/DL (0.6-1.3); GFR ESTIMATE (CALCULATED) 52 mL/min/ (58.99-99999); POTASSIUM 4.5 MEQ/L (3.7-5.4); SODIUM 135 MEQ/L (136-147); TOTAL BILIRUBIN 11.1 MG/DL (0.0-1.0); TOTAL PROTEIN 4.9 G/DL (6.4-8.3); UREA NITROGEN (BUN) 32 mg/dL (9-23)
[2017-12-31 06:54] LABS: GLUCOSE 109 mg/dL (70-99)
[2017-12-31 15:38] LABS: HEMATOCRIT 22.4 % (38.0-50.0); HEMOGLOBIN 7.6 G/DL (12.5-16.6)
[2017-12-31 18:46] LABS: BASOPHIL (%) 0.4 % (0-1); EOSINOPHIL COUNT 0.1 K/uL (0-0.3); HEMATOCRIT 21.7 % (38.0-50.0); HEMOGLOBIN 7.6 G/DL (12.5-16.6); IMMATURE GRANULOCYTE (%) 0.5 % (0.0-0.7); LYMPHOCYTE (%) 7.3 % (15-42); LYMPHOCYTE COUNT 0.6 K/uL (1.0-2.8); MCH 34.2 PG (29.0-34.0); MCV 97.7 FL (86-99); MONOCYTE COUNT 0.6 K/uL (0-0.8); NEUTROPHIL (%) 83.8 % (45-76); NEUTROPHIL COUNT 6.6 K/uL (1.8-6.4); PLATELET COUNT 56 K/uL (156-360); RBC DIS.WIDTH-CV 22.5 % (11.8-14.6); RBC DIS.WIDTH-SD 76.5 % (39-53); RED BLOOD COUNT 2.22 M/uL (4.00-5.50); WHITE BLOOD COUNT 7.9 K/uL (4.1-10.2)
[2017-12-31 18:56] LABS: ALBUMIN 2.7 g/dL (3.2-4.8); CHLORIDE 111 mEq/L (99-109); POTASSIUM 4.2 mEq/L (3.7-5.4); SODIUM 135 mEq/L (136-147)
[2017-12-31 18:58] LABS: GLUCOSE 155 mg/dL (70-99); PTT 27.9 SEC (25-37)
[2017-12-31 19:00] LABS: TOTAL BILIRUBIN 9.2 mg/dL (0.0-1.0)
[2017-12-31 19:02] LABS: CREATININE 1.2 mg/dL (0.6-1.3); GFR ESTIMATE (CALCULATED) > 59 mL/min/ (58.99-99999)
[2017-12-31 19:03] LABS: UREA NITROGEN (BUN) 30 mg/dL (9-23)
[2017-12-31 19:05] LABS: ALKALINE PHOSPHATASE 92 IU/L (3-129); ALT (GPT) 24 IU/L (3-49); AST (GOT) 41 IU/L (2-34); TOTAL PROTEIN 4.9 g/dL (6.4-8.3)
[2018-01-01] VITALS (17 sets, daily range): BP systolic 84–126; BP diastolic 48–96
[2018-01-01 07:52] LABS: INTER. NORMALIZED RATIO 2.1
[2018-01-01 07:52] LABS: BASOPHIL (%) 0.6 % (0-1); EOSINOPHIL (%) 2.1 % (0-5); EOSINOPHIL COUNT 0.1 K/uL (0-0.3); HEMATOCRIT 19.9 % (38.0-50.0); HEMOGLOBIN 6.7 G/DL (12.5-16.6); IMMATURE GRANULOCYTE (%) 0.9 % (0.0-0.7); LYMPHOCYTE (%) 7.5 % (15-42); LYMPHOCYTE COUNT 0.4 K/uL (1.0-2.8); MCH 33.3 PG (29.0-34.0); MCHC 33.7 G/DL (30.0-36.0); MONOCYTE (%) 10.7 % (3-12); MONOCYTE COUNT 0.6 K/uL (0-0.8); NEUTROPHIL (%) 78.2 % (45-76); NEUTROPHIL COUNT 4.2 K/uL (1.8-6.4); PLATELET COUNT 52 K/uL (156-360); RBC DIS.WIDTH-CV 22.2 % (11.8-14.6); RED BLOOD COUNT 2.01 M/uL (4.00-5.50); WHITE BLOOD COUNT 5.3 K/uL (4.1-10.2)
[2018-01-01 07:55] LABS: PTT 38.4 SEC (25-37)
[2018-01-01 08:08] LABS: ALBUMIN 2.2 G/DL (3.2-4.8); ALKALINE PHOSPHATASE 84 IU/L (3-129); ALT (GPT) 18 IU/L (3-49); AST (GOT) 29 IU/L (2-34); CHLORIDE 110 MEQ/L (99-109); CREATININE 1.1 MG/DL (0.6-1.3); GFR ESTIMATE (CALCULATED) > 59 mL/min/ (58.99-99999); GLUCOSE 150 mg/dL (70-99); POTASSIUM 4.4 MEQ/L (3.7-5.4); SODIUM 135 MEQ/L (136-147); UREA NITROGEN (BUN) 22 mg/dL (9-23)
[2018-01-01 08:09] LABS: TOTAL BILIRUBIN 6.8 MG/DL (0.0-1.0); TOTAL PROTEIN 4.1 G/DL (6.4-8.3)
[2018-01-01 08:46] LABS: HIGH-SENS C-REACTIVE PROTEIN 3.52 MG/DL (0.02-0.20)
[2018-01-02 06:59] LABS: INTER. NORMALIZED RATIO 1.8
[2018-01-02 07:02] LABS: PTT 37.1 SEC (25-37)
[2018-01-02 07:25] VITALS: BP 109/57
[2018-01-02 07:29] LABS: ALBUMIN 2.6 G/DL (3.2-4.8); ALKALINE PHOSPHATASE 86 IU/L (3-129); ALT (GPT) 21 IU/L (3-49); AST (GOT) 35 IU/L (2-34); CHLORIDE 106 MEQ/L (99-109); CREATININE 1.1 MG/DL (0.6-1.3); GFR ESTIMATE (CALCULATED) > 59 mL/min/ (58.99-99999); GLUCOSE 121 mg/dL (70-99); POTASSIUM 3.6 MEQ/L (3.7-5.4); SODIUM 134 MEQ/L (136-147); TOTAL PROTEIN 4.6 G/DL (6.4-8.3); UREA NITROGEN (BUN) 18 mg/dL (9-23)
[2018-01-02 07:31] LABS: TOTAL BILIRUBIN 8.2 MG/DL (0.0-1.0)
[2018-01-02 10:37] LABS: BASOPHIL (%) 0.8 % (0-1); EOSINOPHIL (%) 5.3 % (0-5); EOSINOPHIL COUNT 0.3 K/uL (0-0.3); HEMOGLOBIN 8.6 G/DL (12.5-16.6); IMMATURE GRANULOCYTE (%) 0.6 % (0.0-0.7); LYMPHOCYTE (%) 11.6 % (15-42); LYMPHOCYTE COUNT 0.6 K/uL (1.0-2.8); MCH 33.7 PG (29.0-34.0); MCHC 34.4 G/DL (30.0-36.0); MONOCYTE (%) 13.7 % (3-12); MONOCYTE COUNT 0.7 K/uL (0-0.8); NEUTROPHIL COUNT 3.2 K/uL (1.8-6.4); RBC DIS.WIDTH-CV 21.3 % (11.8-14.6); RBC DIS.WIDTH-SD 74.4 % (39-53); WHITE BLOOD COUNT 4.7 K/uL (4.1-10.2)
[2018-01-02 11:15] VITALS: BP 117/67
[2018-01-02 11:31] LABS: PLATELET COUNT 75 K/uL (156-360); RED BLOOD COUNT 2.55 M/uL (4.00-5.50)
[2018-01-02 15:50] VITALS: BP 121/63
[2018-01-02 19:11] VITALS: BP 119/69
[2018-01-02 23:16] VITALS: BP 138/67
[2018-01-03 04:15] VITALS: BP 113/56
[2018-01-03 07:20] VITALS: BP 99/55
[2018-01-03 10:34] LABS: BASOPHIL (%) 1.1 % (0-1); BASOPHIL COUNT 0.1 K/uL (0-0.1); EOSINOPHIL (%) 5.6 % (0-5); EOSINOPHIL COUNT 0.3 K/uL (0-0.3); HEMATOCRIT 26.5 % (38.0-50.0); IMMATURE GRANULOCYTE (%) 2.2 % (0.0-0.7); LYMPHOCYTE (%) 11.2 % (15-42); LYMPHOCYTE COUNT 0.5 K/uL (1.0-2.8); MCH 32.8 PG (29.0-34.0); MCV 96.7 FL (86-99); MONOCYTE (%) 16.3 % (3-12); MONOCYTE COUNT 0.8 K/uL (0-0.8); NEUTROPHIL (%) 63.6 % (45-76); PLATELET COUNT 88 K/uL (156-360); RBC DIS.WIDTH-CV 20.4 % (11.8-14.6); RBC DIS.WIDTH-SD 71.9 % (39-53); RED BLOOD COUNT 2.74 M/uL (4.00-5.50); WHITE BLOOD COUNT 4.7 K/uL (4.1-10.2)
[2018-01-03 10:46] LABS: INTER. NORMALIZED RATIO 1.8
[2018-01-03 11:29] LABS: ALBUMIN 2.7 G/DL (3.2-4.8); ALKALINE PHOSPHATASE 108 IU/L (3-129); ALT (GPT) 23 IU/L (3-49); AST (GOT) 37 IU/L (2-34); CHLORIDE 99 MEQ/L (99-109); CREATININE 0.9 MG/DL (0.6-1.3); GFR ESTIMATE (CALCULATED) > 59 mL/min/ (58.99-99999); GLUCOSE 108 mg/dL (70-99); POTASSIUM 3.6 MEQ/L (3.7-5.4); SODIUM 132 MEQ/L (136-147); TOTAL BILIRUBIN 8.1 MG/DL (0.0-1.0); UREA NITROGEN (BUN) 16 mg/dL (9-23)
[2018-01-03] MEDS ORDERED: CONSTULOSE10 GM/15 M PO (16:28)
[2018-01-03 16:50] VITALS: BP 119/59
== END 2018-01-03 20:52 | disposition home or self-care (01) | DRG 871 ==
LOC: EME 16:32 → 4WEST 21:36 → EDOF 21:36 → 5EAST 21:36 → ENRESERV 21:37 → 4WEST 23:16 → ENRESERV 01-01 10:56 → 4WEST 01-01 11:06 → ENRESERV 01-01 16:10 → 5EAST 01-01 19:45
PROVIDERS: Internal Medicine; Nurse Practitioner Family; Surgery
PROC: 30233N1 Transfusion of Nonautologous Red Blood Cells into Peripheral Vein, Percutaneous Approach (ICD-10-PCS; principal; 2017-12-30)
DX: A41.9 Sepsis, unspecified organism (principal); K70.31 Alcoholic cirrhosis of liver with ascites; K65.9 Peritonitis, unspecified; K72.90 Hepatic failure, unspecified without coma; E87.1 Hypo-osmolality and hyponatremia; R65.21 Severe sepsis with septic shock; K76.6 Portal hypertension; D69.59 Other secondary thrombocytopenia; K21.9 Gastro-esophageal reflux disease without esophagitis; D68.4 Acquired coagulation factor deficiency; D53.9 Nutritional anemia, unspecified; E03.9 Hypothyroidism, unspecified; L40.9 Psoriasis, unspecified; K80.20 Calculus of gallbladder without cholecystitis without obstruction; I85.00 Esophageal varices without bleeding; I10 Essential (primary) hypertension; Z76.82 Awaiting organ transplant status; Z87.891 Personal history of nicotine dependence; Z80.0 Family history of malignant neoplasm of digestive organs; Z87.442 Personal history of urinary calculi; Z82.49 Family history of ischemic heart disease and other diseases of the circulatory system
CPT/HCPCS: 49083; 70450; 71045; 74177; 80053; 80202; 81003; 82140; 82803; 83605; 83690; 84145 90; 85014; 85018; 85025; 85025 91; 85027; 85610; 85730; 86141; 86850; 86900; 86901; 86920; 87040; 87641; 93005; 99281; 99285; C1753; C9113; J2543; J3370; J7030; J7050; P9016; P9040; P9047

== ENCOUNTER → 2017-12-30 | Outpatient (CLI) | payer OTHER ==
[~2017-12-30] MED LIST changes: +BUMETANIDE2 MG PO; +CONSTULOSE10 GM/15 M PO; +INDERAL10 MG PO; +METOLAZONE5 MG PO; +PANTOPRAZOLE SO40 MG PO; +POTASSIUM CHLO20 ME1 PO
== END | disposition home or self-care (01) ==
LOC: RAD 13:15
PROC: 0W9G3ZZ Drainage of Peritoneal Cavity, Percutaneous Approach (ICD-10-PCS; principal; 2017-12-30)
DX: R18.8 Other ascites (principal)
CPT/HCPCS: 49083

== ENCOUNTER 2018-02-01 09:32 | Emergency (ER) | payer OTHER ==
[~2018-02-01] VITALS: Ht 180.3 cm; Wt 72.8 kg
[~2018-02-01 09:32] MED LIST changes: +CONSTULOSE10 GM/15 M PO; +PANTOPRAZOLE SO40 MG PO
[2018-02-01 10:06] LABS: ALBUMIN 2.8 g/dL (3.2-4.8)
[2018-02-01 10:07] LABS: CHLORIDE 97 mEq/L (99-109); POTASSIUM 5.1 mEq/L (3.7-5.4); SODIUM 123 mEq/L (136-147)
[2018-02-01 10:09] LABS: GLUCOSE 117 mg/dL (70-99); TOTAL PROTEIN 5.7 g/dL (6.4-8.3)
[2018-02-01 10:11] LABS: TOTAL BILIRUBIN 7.1 mg/dL (0.0-1.0)
[2018-02-01 10:12] LABS: ALKALINE PHOSPHATASE 184 IU/L (3-129); INTER. NORMALIZED RATIO 1.7
[2018-02-01 10:13] LABS: CREATININE 1.1 mg/dL (0.6-1.3); GFR ESTIMATE (CALCULATED) > 59 mL/min/ (58.99-99999)
[2018-02-01 10:14] LABS: AST (GOT) 55 IU/L (2-34); DIRECT BILIRUBIN 3.2 mg/dL (0.0-0.3); UREA NITROGEN (BUN) 28 mg/dL (9-23)
[2018-02-01 10:16] LABS: ALT (GPT) 42 IU/L (3-49)
[2018-02-01 10:19] LABS: TROP-I INTERPRETATION NEGATIVE; TROPONIN-I < 0.01 ng/mL (0.0-0.30)
[2018-02-01 10:56] LABS: BASOPHIL (%) 0.8 % (0-1); BASOPHIL COUNT 0.1 K/uL (0-0.1); EOSINOPHIL (%) 3.4 % (0-5); EOSINOPHIL COUNT 0.3 K/uL (0-0.3); HEMATOCRIT 19.2 % (38.0-50.0); IMMATURE GRANULOCYTE (%) 3.1 % (0.0-0.7); LYMPHOCYTE (%) 13.3 % (15-42); MCH 35.4 PG (29.0-34.0); MCHC 36.5 G/DL (30.0-36.0); MONOCYTE (%) 18.4 % (3-12); MONOCYTE COUNT 1.4 K/uL (0-0.8); NEUTROPHIL COUNT 4.7 K/uL (1.8-6.4); RBC DIS.WIDTH-CV 19.4 % (11.8-14.6); RBC DIS.WIDTH-SD 68.9 % (39-53); WHITE BLOOD COUNT 7.6 K/uL (4.1-10.2)
[2018-02-01 11:21] LABS: APPEARANCE CLEAR ((CLEAR)); BILIRUBIN NEGATIVE; BLOOD NEGATIVE; COLOR AMBER ((YELLOW)); GLUCOSE (STRIP) NEGATIVE; KETONES NEGATIVE; LEUKOCYTES NEGATIVE; NITRITE NEGATIVE; PROTEIN (STRIP) NEGATIVE; SPECIFIC GRAVITY 1.021 (1.000-1.030); UCUL ADDED? NO
[2018-02-01 11:22] LABS: PLATELET COUNT 126 K/uL (156-360); RED BLOOD COUNT 1.98 M/uL (4.00-5.50)
[2018-02-01] MEDS ORDERED: LACTULOSE10 GM/151 PO (13:01)
[2018-02-01] MEDS ORDERED: B COMPLEX #11 EACH PO (13:05)
[2018-02-01] MEDS ORDERED: CLOTRIMAZOLE10 ML TP (13:06)
[2018-02-01] MEDS ORDERED: FOLIC ACID1 MG PO (13:07)
[2018-02-01] MEDS ORDERED: IRON325 M1 PO (13:07)
[2018-02-01] MEDS ORDERED: MAG-OXIDE400 MG PO (13:07)
[2018-02-01] MEDS ORDERED: CENTRUM ADULTS1 EACH PO (13:07)
[2018-02-01] MEDS ORDERED: BACTRIM,SEPT1 TABLET PO (13:08)
[2018-02-01] MEDS ORDERED: THIAMINE HCL100 MG PO (13:08)
[2018-02-01 17:18] VITALS: BP 90/63
== END 2018-02-01 17:44 | disposition short-term general hospital (02) ==
LOC: EME 09:32
PROVIDERS: Emergency Medicine
DX: E87.1 Hypo-osmolality and hyponatremia (principal); K72.90 Hepatic failure, unspecified without coma; D64.9 Anemia, unspecified; K74.60 Unspecified cirrhosis of liver; Z76.82 Awaiting organ transplant status; I10 Essential (primary) hypertension; K21.9 Gastro-esophageal reflux disease without esophagitis; L40.9 Psoriasis, unspecified; F32.9 Major depressive disorder, single episode, unspecified; Z87.891 Personal history of nicotine dependence; Z87.442 Personal history of urinary calculi
CPT/HCPCS: 71046; 80048; 80076; 81003; 84484; 85025; 85610; 93005; 99281; 99285; J7030; P9047